=== PATIENT | male | born 1970 | race Two or more races ===

== ENCOUNTER 2020-12-02 12:29 | Inpatient (IN) | payer MEDICAID ==
[~2020-12-02] VITALS: Ht 188 cm; Wt 84.8 kg
--- NOTE | 2020-12-02 12:30 | NUR ---
Patient ranchora, from street, altered, noted fever. On room air, breathing evenly and unlabored. Connected to the monitor and pulse ox. kept comfortable, will continue to monitor accordingly.
[2020-12-02] MEDS ORDERED: IV NS 0.9% 1,000 ML BAG IV ONE (13:00)
[2020-12-02] MEDS ORDERED: VANCOMYCIN 1 GM in IV D5W 250 ML IV ONE (13:00)
[2020-12-02] MEDS ORDERED: CEFTRIAXONE 1GM BAG (ER ONLY) 50 ML IV ONE ×2 (13:00→13:09)
[2020-12-02] MEDS ORDERED: IBUPROFEN 600 MG TABLET PO ONE (13:00)
[2020-12-02] MEDS ORDERED: IBUPROFEN 600 MG TABLET ONE (13:09)
[2020-12-02 13:33] LABS: BASOPHILS % (AUTO) 0.1 % (0.0-2.0); HEMATOCRIT 23 % (39-51); HEMOGLOBIN 7.6 g/dL (13.5-17.5); LYMPHOCYTES # (AUTO) 0.9 /CMM (0.8-4.8); LYMPHOCYTES % (AUTO) 8.5 % (20.0-44.0); MEAN CORPUSCULAR HGB CONC 33 g/dl (31.0-36.0); MEAN CORPUSCULAR VOLUME 98 fL (80-96); MONOCYTES # (AUTO) 1.2 /CMM (0.1-1.30); MONOCYTES % (AUTO) 11.3 % (2.0-12.0); NEUTROPHILS # (AUTO) 8.5 /CMM (1.8-8.9); NEUTROPHILS % (AUTO) 80.1 % (43.0-81.0); PLATELET COUNT (AUTO) 168 /CMM (150-450); RED BLOOD CELL COUNT(AUTO) 2.34 MIL/uL (4.5-6.0); WHITE BLOOD COUNT (AUTO) 10.6 K/uL (4.3-11.0)
[2020-12-02 14:03] LABS: CALCIUM, SERUM 7.7 mg/dL (8.5-10.1); CARBON DIOXIDE 12 mmol/L (21-32); CHLORIDE 107 mmol/L (98-107); CREATININE 2.4 mg/dL (0.6-1.3); GLUCOSE 155 mg/dL (74-106); POTASSIUM 4.1 mmol/L (3.5-5.1); SODIUM SERUM 139 mmol/L (136-145); UREA NITROGEN, BLOOD 36 mg/dL (7-18)
[2020-12-02 14:06] LABS: BILIRUBIN,URINE NEGATIVE (NEGATIVE); COLOR,URINE YELLOW (YELLOW); LEUKOCYTE ESTERASE ,URINE NEGATIVE (NEGATIVE); NITRITE, URINE NEGATIVE (NEGATIVE); PROTEIN,URINE 30 mg/dl (NEGATIVE); UGLUCOSE NEGATIVE (NEGATIVE); UROBILINOGEN,URINE 0.2 EU/dL (0.2)
[2020-12-02 14:08] LABS: ALBUMIN 2.2 g/dL (3.4-5.0); ALKALINE PHOSPHATASE 201 U/L (46-116); ASPARTATE AMINOTRANSFERASE 30 U/L (15-37); BILIRUBIN,DIRECT 0.3 mg/dL (0.0-0.2); BILIRUBIN,TOTAL 0.5 mg/dL (0.2-1.0); TOTAL PROTEIN, SERUM 8.1 g/dL (6.4-8.2)
--- NOTE | 2020-12-02 14:12 | NUR ---
rapid covid negative
[2020-12-02 14:18] LABS: ALANINE AMINOTRANSFERASE 6 U/L (12-78)
[2020-12-02 14:19] LABS: BACTERIA,URINE Rare /HPF (None Seen); SQUAMOUS EPITHELIAL CELL,UR Few /HPF (None Seen); WBC,URINE 0-2 /HPF (0-3)
[2020-12-02] MEDS ORDERED: IBUP-1955 PO (15:36)
[2020-12-02] MEDS ORDERED: METF-440 PO (15:36)
[2020-12-02] MEDS ORDERED: ERGO500014 PO (15:36)
[2020-12-02] MEDS ORDERED: LISI20TA30 PO (15:36)
[2020-12-02] MEDS ORDERED: INSU100V7 SQ (15:36)
--- NOTE | 2020-12-02 15:39 | NUR ---
[facility] CALLED FARMWORKER DAIRY PAGED.
--- NOTE | 2020-12-02 15:40 | NUR ---
MOVE SHEET SUBMITTED.
--- NOTE | 2020-12-02 16:05 | NUR ---
GOT BED 106
--- NOTE | 2020-12-02 17:47 | NUR ---
patient transferred to room 110 via acls protocol, vitals in stable condition, patient a/ox4, breathing even and unlabored, no sob noted. endorsed to Marquis SHUKLA.
[2020-12-02 17:53] VITALS: BP 119/80
[2020-12-02] MEDS ORDERED: ACETAMINOPHEN 325 MG TABLET PO PRN (18:30)
[2020-12-02] MEDS ORDERED: Z GUARD REMEDY 2 OZ OINT TP PRN (18:30)
[2020-12-02] MEDS ORDERED: ZOLPIDEM TARTRATE 5 MG TABLET PO PRN (18:30)
[2020-12-02] MEDS ORDERED: MAG HYDROX/AL HYDROX/SIMETH 30 ML UDC PO PRN (18:30)
[2020-12-02] MEDS ORDERED: DEXTROSE 50%-WATER 50 ML DISP.SYRIN IV PRN (18:30)
[2020-12-02] MEDS ORDERED: MAGNESIUM HYDROXIDE 30 ML UDC PO PRN (18:30)
[2020-12-02] MEDS ORDERED: ONDANSETRON HCL/PF 4 MG/2 ML VIAL IVP PRN (18:30)
[2020-12-02] MEDS ORDERED: LORAZEPAM INJ 2 MG/ML VIAL IV PRN (18:30)
[2020-12-02] MEDS ORDERED: PIPERACILLIN /TAZOBACTAM 3.375 G in IV D5W 50 ML IV SCH (18:30)
--- NOTE | 2020-12-02 19:40 | NUR ---
RN OPENING NOTE, RECEIVED PATIENT IN BED, ASLEEP BUT AROUSES TO VERBAL STIMULI, A/O X4 , ABLE TO VERBALIZED NEEDS AND CONCERNS, AT ROOM AIR WITH OIMLAO2 SAT LEVEL, NO SOB/ACUTE RESP DISTRESS, SINUS TACHY IN TELE MONITOR, WITH HR 120S AT THIS TIME, RIGHT AC AND LEFT WRIST IV SITES PATENT AND INTACT, ALL PT SAFETY PRECAUTIONS IN PLACE, BED LOCKED AND LOW POSITION, WITH S/R X2 UP, CALL LIGHT W/I REACH, WILL CONTINUE TO MONITOR CLOSELY.
[2020-12-02 20:00] VITALS: BP 152/86
[2020-12-02] MEDS: HEPARIN SODIUM, PORCINE 5000 UNITS/1 ML VIAL SQ SCH (21:00)
[2020-12-02] MEDS: BLOOD SUGAR DIAGNOSTIC 1 EACH STRIP IN SCH (21:23)
[2020-12-02] MEDS: INSULIN REGULAR, HUMAN 100 UNIT/ML 3 ML VIAL SQ PRN (21:24)
[2020-12-02] MEDS ORDERED: MEROPENEM 500 MG in IV NS 0.9% 50 ML IV SCH (23:00)
[2020-12-02] MEDS ORDERED: MEROPENEM 500 MG VIAL IV ONE (23:51)
[2020-12-03] VITALS: BP 143/79
--- NOTE | 2020-12-03 00:10 | NUR ---
RN NOTES, INFORMED DR TORRES THAT PATIENT IS BEING WITH HR 120 SINCE BEGINNING OF THE SHIFT, THAT PATIENT ALSO HAD 101.6 TEMP TYLENOL GIVEN EARLIER BUT PATIENT AT THIS TIME AFEBRILE AND STILL CONTINUE WITH HR EVEN IN THE 130S, REPLIED WITH NEW ORDER TO START IV FLUIDS NS 100ML/HR, NOTED AND CARRIED OUT.
[2020-12-03] MEDS: IV NS 0.9% 1,000 ML IV SCH ×3 (00:51→20:59)
[2020-12-03 04:00] VITALS: BP 152/86
--- NOTE | 2020-12-03 06:33 | NUR ---
RN CLOSING NOTE, PATIENT IN BED, ASLEEP BUT AROUSES TO VERBAL STIMULI, A/O X4 , ABLE TO VERBALIZED NEEDS AND CONCERNS, CONTINUE AT ROOM AIR WITH O2 WNL, NO SOB/ACUTE RESP DISTRESS, SINUS TACHY LOW 110, RIGHT AC AND LEFT WRIST IV SITES PATENT AND INTACT, NS 0.9% INFUSING ORDERED, AND PATIENT TOLERATED WELL, ATIVAN IV ADMINISTERED X1 FOR ALCOHOL WITHDRAWAL/TREMORS, ALL PT SAFETY PRECAUTIONS IN PLACE, BED LOCKED AND LOW POSITION, WITH S/R X2 UP, CALL LIGHT W/I REACH, WILL ENDORSE CONTINUITY OF CARE TO ONCOMING NURSE.
[2020-12-03 06:35] LABS: BASOPHILS % (AUTO) 0.6 % (0.0-2.0); EOSINOPHILS % (AUTO) 0.4 % (0.0-6.0); LYMPHOCYTES # (AUTO) 0.7 /CMM (0.8-4.8); LYMPHOCYTES % (AUTO) 15.4 % (20.0-44.0); MEAN CORPUSCULAR HGB CONC 35 g/dl (31.0-36.0); MEAN CORPUSCULAR VOLUME 94 fL (80-96); MONOCYTES # (AUTO) 0.7 /CMM (0.1-1.30); NEUTROPHILS # (AUTO) 3.3 /CMM (1.8-8.9); NEUTROPHILS % (AUTO) 68.6 % (43.0-81.0); PLATELET COUNT (AUTO) 112 /CMM (150-450); RED BLOOD CELL COUNT(AUTO) 2.14 MIL/uL (4.5-6.0); WHITE BLOOD COUNT (AUTO) 4.8 K/uL (4.3-11.0)
[2020-12-03] MEDS: VANCOMYCIN 1 GM in IV D5W 250ml IV SCH (06:41)
[2020-12-03] MEDS: HYDROCODONE/APAP 5/325MG TABLET PO PRN ×2 (06:51→14:47)
[2020-12-03 06:54] LABS: CALCIUM, SERUM 7.7 mg/dL (8.5-10.1); MAGNESIUM 1.6 mg/dL (1.8-2.4); PHOSPHORUS 3.5 mg/dL (2.5-4.9); POTASSIUM 3.8 mmol/L (3.5-5.1)
[2020-12-03 06:56] LABS: IRON, SERUM 42 ug/dl (50-175); TOTAL IRON BINDING CAPACITY 164 ug/dl (250-450)
[2020-12-03 07:08] LABS: HEMATOCRIT 20 % (39-51)
[2020-12-03 07:13] LABS: FERRITIN 573 ng/mL (8-388)
--- NOTE | 2020-12-03 07:33 | NUR ---
RN OPENING NOTE PATIENT PRESENT IN BED, A/OX4, SLEEPY, ON ROOM AIR, SPO2 IS 99%, NO SOB OR DISTRESS NOTED, RESP UNLABORED, ON TELE MONITOR NST 110-112, URINAL AT BED SITE, IV LINE ON R AC ND L WRIST NOTED, FLUSHED AND INTACT, WOUND ON L FOOT NOTED, SAFETY MEASURES IN PLACE, BED IS LOCKED, CALL LIGHT IN REACH, WILL CONT TO MONITOR
[2020-12-03] MEDS: PANTOPRAZOLE 40 MG TABLET.DR PO SCH (07:50)
[2020-12-03] MEDS: BLOOD SUGAR DIAGNOSTIC 1 EACH STRIP IN SCH ×4 (07:50→22:06)
[2020-12-03] MEDS: INSULIN REGULAR, HUMAN 100 UNIT/ML 3 ML VIAL SQ PRN ×4 (07:51→22:02)
[2020-12-03] MEDS: THIAMINE HCL 100 MG TABLET PO SCH (08:13)
[2020-12-03] MEDS: MEROPENEM 500 MG in IV NS 0.9% 50 ML IV SCH ×3 (08:13→20:57)
[2020-12-03] MEDS: FOLIC ACID 1 MG TABLET PO SCH (08:16)
[2020-12-03] MEDS: HEPARIN SODIUM, PORCINE 5000 UNITS/1 ML VIAL SQ SCH ×2 (08:17→21:00)
--- NOTE | 2020-12-03 08:17 | NUR ---
Hbg and hematocrit went down, will hold Heparin and inform MD , also active bleeding from feet wound
--- NOTE | 2020-12-03 09:24 | NUR ---
RECEIVED PHONE CALL FROM LAB , BLOOD CULTURE POSITIVE FOR COCCI BACTERIA, WILL NOTIFY HOSPITALIST
--- NOTE | 2020-12-03 10:10 | NUR ---
WOUND CARE CONSULT: REVIEWED CHART, NURSING DOCUMENTATION AND PHOTO WHICH INDICATES LEFT LOWER LEG WOUND, PRESENT ON ADMISSION. PER NURSING STAFF, PT KEEPS TOUCHING HIS WOUND, EVEN WHEN DISCOURAGED BY NURSING STAFF. RECOMMEND DPM CONSULT. DR CARRION NOTIFIED. IN AGREEMENT WITH PLAN OF CARE.
[2020-12-03] MEDS: LISINOPRIL (20MG) 20 MG TABLET PO SCH (10:15)
--- NOTE | 2020-12-03 10:17 | NUR ---
WOUND CARE:RECEIVED CALL FROM DR CARRION, WHO IS FAMILIAR WITH PT AND HIS WOUND. WOUND CARE ORDER RECEIVED AND DISCUSSED WITH NURSING STAFF.
[2020-12-03] MEDS ORDERED: Magnesium 1GM/D5W 100ML PREMIX 100 ML IV SCH (10:30)
[2020-12-03 12:00] VITALS: BP 157/77
[2020-12-03 12:05] LABS: LYMPHOCYTES % (MANUAL) 14 % (16-48); MONOCYTES % (MANUAL) 10 % (0-11.0); NEUTROPHILS % (MANUAL) 76 (42-76)
--- NOTE | 2020-12-03 15:40 | NUR ---
SS Consult received for this pt. for homelessness & wants to discuss insurance coverage for potential surgery/ prosthetics etc per pt.'s nurse, Miya. JOVANA informed showcase maker,Miya regarding pt.'s questions. Per Miya she will speak to pt. SW will follow up to address homelessness at a later time.
--- NOTE | 2020-12-03 15:41 | NUR ---
RN NOTE PATIENT REQUESTED TO SPEAK WITH SW[employer]PER[employer] SUPERVISOR, P[GREG CALL MADE, DYAN IS AWARE, HOWEVER UNABLE TO COME AND SEE HIM TODAY, PROVIDED HER WITH PT'S CELL PHONE NUMBER, ([phone])
[2020-12-03 20:00] VITALS: BP 135/64
--- NOTE | 2020-12-03 20:00 | NUR ---
RN NOTE RECEIVED PT IN BED A/A/O X4, PT IS ON RA SATING ABOVE 95%, PT HAS UNLABORED BREATHING. SAFETY MEASURES IN PLACE.
[2020-12-03] MEDS: INSULIN GLARGINE, 100 UNIT/ML CARTRIDGE SQ SCH (21:59)
--- NOTE | 2020-12-03 22:04 | NUR ---
lantus not given, pt npo status at midnight, per dr Santhosh parker.
--- NOTE | 2020-12-03 22:07 | NUR ---
heparin not administered, pt has left foot wound slightly bleeding, dr Trevizo made aware, per dr Trevizo hold heparin.
[2020-12-04] VITALS (9 sets, daily range): BP systolic 135–161; BP diastolic 78–93
[2020-12-04] MEDS: VANCOMYCIN 1 GM in IV D5W 250ml IV SCH ×2 (01:12→20:20)
[2020-12-04] MEDS: MEROPENEM 500 MG in IV NS 0.9% 50 ML IV SCH (05:08)
[2020-12-04 06:25] LABS: BASOPHILS % (AUTO) 0.9 % (0.0-2.0); EOSINOPHILS % (AUTO) 1.5 % (0.0-6.0); LYMPHOCYTES % (AUTO) 22.3 % (20.0-44.0); MEAN CORPUSCULAR HGB CONC 35 g/dl (31.0-36.0); MEAN CORPUSCULAR VOLUME 94 fL (80-96); MONOCYTES # (AUTO) 0.7 /CMM (0.1-1.30); MONOCYTES % (AUTO) 15.6 % (2.0-12.0); NEUTROPHILS # (AUTO) 2.6 /CMM (1.8-8.9); NEUTROPHILS % (AUTO) 59.7 % (43.0-81.0); PLATELET COUNT (AUTO) 120 /CMM (150-450); RED BLOOD CELL COUNT(AUTO) 2.05 MIL/uL (4.5-6.0); WHITE BLOOD COUNT (AUTO) 4.3 K/uL (4.3-11.0)
[2020-12-04 06:34] LABS: CALCIUM, SERUM 7.9 mg/dL (8.5-10.1); CREATININE 2.2 mg/dL (0.6-1.3); MAGNESIUM 1.6 mg/dL (1.8-2.4); PHOSPHORUS 3.4 mg/dL (2.5-4.9); POTASSIUM 3.5 mmol/L (3.5-5.1)
[2020-12-04] MEDS: IV NS 0.9% 1,000 ML IV SCH (06:39)
[2020-12-04 06:45] LABS: HEMOGLOBIN 6.8 g/dL (13.5-17.5)
[2020-12-04 06:46] LABS: HEMATOCRIT 19 % (39-51)
--- NOTE | 2020-12-04 07:19 | NUR ---
RN NOTE REPORT GIVEN TO ONCOMING SHIFT FOR MARY.
[2020-12-04] MEDS: BLOOD SUGAR DIAGNOSTIC 1 EACH STRIP IN SCH ×4 (07:30→21:26)
--- NOTE | 2020-12-04 07:30 | NUR ---
RN OPENING NOTES RECEIVED PT IN BED. AWAKE, A/O X4. ON ROOM AIR SATURATING @99%. NO SOB OR ANY RESPIRATORY DISTRESS NOTED. USES URINAL AT BEDSIDE., IV ACCESS ON R AC #18 AND L WRIST #18 BOTH INTACT AND PATENT. WOUND ON L FOOT NOTED. SAFETY MEASURES IN PLACE. CALL LIGHT WITHIN REACH. BED LOCKED AND AT LOWEST POSITION WITH SIDE RAILS UP X2. WILL CONTINUE TO MONITOR.
[2020-12-04 08:19] LABS: EOSINOPHILS % (MANUAL) 2 % (0-4); LYMPHOCYTES % (MANUAL) 24 % (16-48); MONOCYTES % (MANUAL) 12 % (0-11.0); NEUTROPHILS % (MANUAL) 61 (42-76); REACTIVE LYMPHOCYTES 1 % (0-0)
[2020-12-04] MEDS: THIAMINE HCL 100 MG TABLET PO SCH (08:27)
[2020-12-04] MEDS: LISINOPRIL (20MG) 20 MG TABLET PO SCH (08:27)
[2020-12-04] MEDS: PANTOPRAZOLE 40 MG TABLET.DR PO SCH (08:27)
[2020-12-04] MEDS: FOLIC ACID 1 MG TABLET PO SCH (08:27)
[2020-12-04] MEDS ORDERED: ACETAMINOPHEN 325 MG TABLET PO ONE ×2 (08:30→12:30)
[2020-12-04] MEDS ORDERED: diphenhydrAMINE HCL 50 MG/ML VIAL IV ONE ×2 (08:30→12:30)
[2020-12-04] MEDS: INSULIN REGULAR, HUMAN 100 UNIT/ML 3 ML VIAL SQ PRN ×4 (08:49→21:40)
--- NOTE | 2020-12-04 08:50 | NUR ---
RN NOTES BS OF 115, NO INSULIN COVERAGE.
[2020-12-04] MEDS: HEPARIN SODIUM, PORCINE 5000 UNITS/1 ML VIAL SQ SCH ×2 (09:00→21:00)
[2020-12-04] MEDS ORDERED: EPOETIN ALFA (10,000 UNIT) 10,000 UNIT/ML VIAL SQ SCH (11:30)
[2020-12-04] MEDS ORDERED: Magnesium 1GM/D5W 100ML PREMIX 100 ML IV SCH (12:00)
[2020-12-04] MEDS ORDERED: LACTULOSE 10 G/15 ML UDC (PYXIS) PO PRN (12:30)
[2020-12-04] MEDS ORDERED: MEROPENEM 1 G in IV NS 0.9% 100 ML IV SCH (13:00)
--- NOTE | 2020-12-04 13:20 | NUR ---
RN NOTES MD ORDERED BLOOD TRANSFUSION OF 1 PRBC FOR HGB OF 6.8. CONSENT SIGNED. VS WNL. TRANSFUSION STARTED.
--- NOTE | 2020-12-04 14:26 | NUR ---
"SS Consult: SS consult requested for homelessness. The pt. is a 50-year old Male seeking medical care for his swollen leg per pt. JOVANA met with pt. bedside. The pt. is alert & oriented x 4 and made appropriate eye contact. Pt.'s mood, speech & thought process are WNL. Per pt. he has been experiencing homelessness for about 5 months and usually resides near [facility]. Pt. is not ambulatory at the moment and may have to amputate the left leg in the upcoming days. Pt. denies any drug or ETOH use. However, per pt. he used to be a heavy drinker in the past. Per pt. his support system also includes friend, Hong Urias [phone]. Pt. denies any Hx. of psychiatric diagnosis and denies SI/HI. Pt. denies hallucinations. [employer] will collaborate with IDT to ensure a safe & appropriate discharge plan. Pt. signed the homeless waiver & it was placed in the pt.s chart. SW provided the following homeless resources to pt. and pt. was receptive: Substance Abuse resources provided included: [facility] Substance Abuse Self-Helpline ([facility]) ; [facility] [address] [facility]. [place] [id number] ; [place] [phone] [facility] [address] [facility] [address] [facility] [address] ; [facility] [address] [facility] [address] ; [facility] [address] [facility] [address] ; [facility] [address] [facility] [address] ; [facility] Substance Abuse Helpline([facility])-[facility] ; [facility] ; [facility]; [facility]; [facility] [place]; [facility]; [facility] [place]; [facility]; [facility]; [facility], [facility]. [facility]; Alcoholics Anonymous -[facility]; [facility]Lql[facility] ; Marijuana Anonymous [facility]; Narcotics Anonymous www.na.org; Year-round shelters: [facility] [address] [place], [place] [phone] ; [facility] [place] [address] [place] [address]; [facility] [address] [facility] [address] Winter Shelters: [facility] Provider: [facility] [place] [address]: [address] [facility] [address] [place], [address] # of Beds: 47 Population Served: [facility] 6 | [facility] Whitney Murillo [place] Provider: [facility] Address: [address], [address] # of Beds: 66 Population Served: [facility] [place] Provider: [facility] Address: [address] [facility], [address] # of Beds: 56 Population Served: [facility] [place] Provider: [facility] Address: [address] [facility], [address] # of Beds: 49 Population Served: [facility] 8 | [facility] Provider: [facility] Address: [address] [facility], [address] # of Beds: 37 Population"
--- NOTE | 2020-12-04 16:20 | NUR ---
RN NOTES TRANSFUSION DONE. NO TRANSFUSION REACTION REPORTED. VS WNL.
[2020-12-04] MEDS: IV NS 0.9% 1,000 ML IV PRN (17:13)
--- NOTE | 2020-12-04 17:48 | NUR ---
RN NOTES BS OF 116, NO INSULIN COVERAGE
[2020-12-04 18:25] LABS: *SPE A/G RATIO 0.5 (0.7-1.7); *SPE ALBUMIN 2.3 g/dL (2.9-4.4); *SPE ALPHA-1-GLOBULIN 0.3 g/dL (0.0-0.4); *SPE ALPHA-2-GLOBULIN 0.5 g/dL (0.4-1.0); *SPE BETA GLOBULIN 0.9 g/dL (0.7-1.3); *SPE GLOBULIN, TOTAL 4.5 g/dL (2.2-3.9); *SPE M-SPIKE Not Observed g/dL (Not Observed); *SPEGAMMA GLOBULIN 2.8 g/dL (0.4-1.8); IMMUNOGLOBULIN A, SERUM 488 mg/dL (90-386); IMMUNOGLOBULIN G, SERUM 2876 mg/dL (603-1613); IMMUNOGLOBULIN M, SERUM 103 mg/dL (20-172)
--- NOTE | 2020-12-04 18:42 | NUR ---
RN CLOSING NOTES S/P 1 UNIT PRBC. NO SIGNIFICANT CHANGES THROUGHOUT SHIFT. VS STABLE. NOT IN DISTRESS. NO PAIN REPORTED AT THIS TIME. SAFETY MEASURES IN PLACE. CALL LIGHT WITHIN REACH. BED LOCKED AND AT LOWEST POSITION WITH SIDE RAILS UP X3. WILL ENDORSE TO NIGHT NURSE FOR MARY.
--- NOTE | 2020-12-04 19:15 | NUR ---
ASSUMED CARE OF PATIENT. AWAKE AND A/O X4. CURRENTLY ON ROOM AIR AND DOES NOT APPEAR TO BE IN ANY DISTRESS AT THIS TIME. IV ACCESS IN L. WRIST SALINE LOCKED AND PATENT. IV ACCESS IN R. AC PATENT AND INFUSING NS @ 100 ML/HR. SWOLLEN LEFT LEG AND FOOT. WOUND NOTED ON LEFT MEDIAL ANKLE. SAFETY MEASURES IN PLACE. BED IN LOW POSITION AND LOCKED WITH SIDE RAILS UP X2. CALL LIGHT WITHIN REACH. WILL CONTINUE TO MONITOR.
[2020-12-04] MEDS ORDERED: CEFTRIAXONE 1 G in IV D5W 50 ML IV SCH (21:00)
[2020-12-04] MEDS: INSULIN GLARGINE, 100 UNIT/ML CARTRIDGE SQ SCH (21:40)
[2020-12-04] MEDS: HYDROCODONE/APAP 5/325MG TABLET PO PRN (21:42)
[2020-12-05] MEDS: IV NS 0.9% 1,000 ML IV PRN (03:11)
[2020-12-05 04:00] VITALS: BP 158/90
--- NOTE | 2020-12-05 04:57 | NUR ---
patient transferred via bed to room 315 with all belongings. report was given to GAYLA Saeed.
--- NOTE | 2020-12-05 05:00 | NUR ---
PT RECEIVED AOX3, BLE WEAKNESS AND ON BED REST. RESPIRATIONS EVEN AND UNLABORED. NO S/SOF DYSPNEA OR SOB. ABDOMEN SOFT NON TENDER.. LBM ON 12/05/2020 AND DENIES CONSTIPATION. #19 TO LEFT ANKLE PATENT, FLUSHES WELL AND NS @100 ML/HR STARTED. LEFT FOOT HAS OLD SCARS AND +4 EDEMA. LEFT ANKLE HAS OPEN WOUND SOLANGE.LEFT ANKLE CLEANED WITH SALINE. COVERED WITH GAUZE AND KERLIX APPLIED LLE ELEVATED. NO C/O OF PAIN OR DISCOMFORT. CALL LIGHT WITHIN REACH AND ENCOURAGE TO CALL FOR ASSIST.
[2020-12-05 06:47] LABS: BASOPHILS % (AUTO) 1.1 % (0.0-2.0); EOSINOPHILS % (AUTO) 2.3 % (0.0-6.0); HEMATOCRIT 22 % (39-51); HEMOGLOBIN 7.7 g/dL (13.5-17.5); LYMPHOCYTES # (AUTO) 0.9 /CMM (0.8-4.8); LYMPHOCYTES % (AUTO) 24.5 % (20.0-44.0); MEAN CORPUSCULAR HGB CONC 35 g/dl (31.0-36.0); MEAN CORPUSCULAR VOLUME 93 fL (80-96); MONOCYTES # (AUTO) 0.5 /CMM (0.1-1.30); MONOCYTES % (AUTO) 13.1 % (2.0-12.0); NEUTROPHILS # (AUTO) 2.3 /CMM (1.8-8.9); PLATELET COUNT (AUTO) 135 /CMM (150-450); RED BLOOD CELL COUNT(AUTO) 2.34 MIL/uL (4.5-6.0); WHITE BLOOD COUNT (AUTO) 3.9 K/uL (4.3-11.0)
--- NOTE | 2020-12-05 07:00 | NUR ---
RN OPENING NOTES RECEIVED PT AWAKE IN BED AT THIS TIME. AOX4, PT ABLE TO MAKE NEEDS KNOWN, PT STABLE ON RA. NO SOB NOTED, NO SIGN OF ANY ACUTE DISTRESS NOTED, NO C/O PAIN AT THIS TIME. IV ACCESS NOTED IN RAC G#18 AND LEFT WRIST G# 18, BOTH INTACT, PATENT AND FLUSHING WELL. PT NOTED WITH LEFT ANKLE WOUND, WOUND CULTURE COLLECTED AND SEND TO LAB, WOUND CARE PROVIDED. ASPIRATIONS AND SAFETY PRECAUTIONS IN PLACE AND MAINTAINED AT ALL TIMES. BED IN LOWEST LOCKED POSITION, SIDE RAILS UP, HOB ELEVATED, TABLE AND CALL LIGHT WITHIN REACH. WILL CONTINUE TO MONITOR
[2020-12-05 07:15] LABS: BILIRUBIN,TOTAL 0.6 mg/dL (0.2-1.0); CREATININE 2.1 mg/dL (0.6-1.3); MAGNESIUM 1.6 mg/dL (1.8-2.4); PHOSPHORUS 4.4 mg/dL (2.5-4.9); POTASSIUM 3.6 mmol/L (3.5-5.1); TOTAL PROTEIN, SERUM 7.5 g/dL (6.4-8.2)
[2020-12-05] MEDS: BLOOD SUGAR DIAGNOSTIC 1 EACH STRIP IN SCH ×2 (07:53→11:44)
[2020-12-05] MEDS: INSULIN REGULAR, HUMAN 100 UNIT/ML 3 ML VIAL SQ PRN ×2 (07:54→11:44)
[2020-12-05 08:00] VITALS: BP 168/69
[2020-12-05 08:07] LABS: *ANA ANTI-CENTROMERE B AB <0.2 AI (0.0-0.9); *ANA ANTI-DNA(DS) AB, QN <1 IU/mL (0-9); *ANA ANTI-JO-1 <0.2 AI (0.0-0.9); *ANA ANTICHROMATIN ANTIBODY <0.2 AI (0.0-0.9); *ANA RNP ANTIBODIES 0.2 AI (0.0-0.9); *ANA SJOGREN'S ANTI-SS-A <0.2 AI (0.0-0.9); *ANA SJOGREN'S ANTI-SS-B 4.2 AI (0.0-0.9); *ANAANTI-SCLERODERMA-70 AB <0.2 AI (0.0-0.9); *ANASMITH AB <0.2 AI (0.0-0.9)
[2020-12-05] MEDS: VANCOMYCIN 1 GM in IV D5W 250ml IV SCH (08:16)
[2020-12-05] MEDS: PANTOPRAZOLE 40 MG TABLET.DR PO SCH (08:16)
[2020-12-05] MEDS: FOLIC ACID 1 MG TABLET PO SCH (08:16)
[2020-12-05] MEDS: THIAMINE HCL 100 MG TABLET PO SCH (08:17)
[2020-12-05 08:20] VITALS: BP 168/69
[2020-12-05] MEDS: LISINOPRIL (20MG) 20 MG TABLET PO SCH (08:20)
[2020-12-05] MEDS: HEPARIN SODIUM, PORCINE 5000 UNITS/1 ML VIAL SQ SCH (08:25)
--- NOTE | 2020-12-05 08:25 | NUR ---
MS RN NOTE HEPARIN SODIUM 5000 UNIT SQ SCHEDULED AT 09:00 HELD DUE TO LOW HGB/HCT (HGB: 7.7, HCT 22) AND HIGH PT (PT 12.0). WILL CONTINUE TO MONITOR.
--- NOTE | 2020-12-05 09:10 | NUR ---
MS RN NOTE PT'S AMMONIA LEVEL IS 56. CEPHULAC 20 MG PO Q6H PRN ADMINISTERED TO PT PER MD ORDER. WILL CONTINUE TO MONITOR.
[2020-12-05] MEDS ORDERED: Magnesium 1GM/D5W 100ML PREMIX 100 ML IV SCH ×2 (11:00)
--- NOTE | 2020-12-05 12:40 | NUR ---
MS RN NOTE PT REQUESTED TO SEE HOSPITALIST. JASS ROY CAME ONTO THE UNIT, DISCUSSED PTS PLAN OF CARE WITH PT. WILL CONTINUE TO MONITOR.
--- NOTE | 2020-12-05 14:50 | NUR ---
MS OVENS SUPERVISOR NOTE PT REQUESTED TO LEAVE AMA, STATING "I WANT TO GO TO [facility] FOR MY CARE". BENEFITS AND RISKS OF LEAVING AMA PROVIDED. PT VERBALIZED UNDERSTANDING AND SIGNED AMA FORM AND HOMELESS WAIVER FORM. HOMELESS RESOURCES PROVIDED TO PT. ALL CARE, NEEDS, MEDICATION AND WOUND CARE TREATMENT ADMINISTERED ANTICIPATED PER ORDER. BELONGINGS ACCOUNTED FOR, SIGNED BY PT, WITH PT AND BELONGING LIST FILED IN CHART. ID BAND REMOVED. IV ACCESS DISCONTINUED, SECURED WITH GAUZE AND TAPE. NO S/O BLEEDING NOTED. NO INFILTRATION. PT REFUSED PICTURE TAKEN OF WOUND. PT ACCOMPANIED BY NURSE IN STABLE CONDITION OUT OF UNIT AT THIS TIME. EMILY CHARGE NURSE AND JASS DAVID NP AWARE.
[2020-12-06] MEDS ORDERED: ERGOCALCIFEROL (VITAMIN D 2) 50,000 UNIT CAPSULE PO SCH (09:00)
== END 2020-12-05 14:58 | disposition left against medical advice (07) | DRG 720 ==
LOC: EDBD 12:29 → ER 12:36 → EDBD 12:36 → TELE1 17:20 → MEDSG1 12-03 08:26 → MED 12-05 04:59
PROVIDERS: ADMIT Nurse Practitioner Family; ATTEND Nurse Practitioner Family
PROC: 30233N1 Transfusion of Nonautologous Red Blood Cells into Peripheral Vein, Percutaneous Approach (ICD-10-PCS; principal; 2020-12-04)
DX: A41.9 Sepsis, unspecified organism (principal); E87.2 Acidosis; R65.20 Severe sepsis without septic shock; E11.69 Type 2 diabetes mellitus with other specified complication; D61.818 Other pancytopenia; N17.0 Acute kidney failure with tubular necrosis; N18.9 Chronic kidney disease, unspecified; I12.9 Hypertensive chronic kidney disease with stage 1 through stage 4 chronic kidney disease, or unspecified chronic kidney disease; E11.22 Type 2 diabetes mellitus with diabetic chronic kidney disease; M86.672 Other chronic osteomyelitis, left ankle and foot; G89.29 Other chronic pain; E66.9 Obesity, unspecified; D64.9 Anemia, unspecified; L02.419 Cutaneous abscess of limb, unspecified; L03.116 Cellulitis of left lower limb; Z68.24 Body mass index [BMI] 24.0-24.9, adult; N39.0 Urinary tract infection, site not specified; F10.129 Alcohol abuse with intoxication, unspecified; Y90.6 Blood alcohol level of 120-199 mg/100 ml; N13.9 Obstructive and reflux uropathy, unspecified; Z59.0 Homelessness; Z20.822 Contact with and (suspected) exposure to COVID-19; Z79.4 Long term (current) use of insulin; K74.60 Unspecified cirrhosis of liver; E88.09 Other disorders of plasma-protein metabolism, not elsewhere classified; B96.20 Unspecified Escherichia coli [E. coli] as the cause of diseases classified elsewhere; D69.59 Other secondary thrombocytopenia; R16.1 Splenomegaly, not elsewhere classified; M00.9 Pyogenic arthritis, unspecified; Z83.3 Family history of diabetes mellitus
CPT/HCPCS: 36415; 71045-TC; 73600-TC; 73721-TC; 76705-TC; 76770-TC; 80048-TC; 80053-TC; 80061-TC; 80076-TC; 80202-TC; 81001; 82140-TC; 82550-TC; 82728-TC; 82784; 82962-TC; 83540-TC; 83605-TC; 83735-TC; 83970; 84100-TC; 84155; 84165; 84443-TC; 84484-TC; 85025-TC; 85652-TC; 85730-TC; 86225; 86235; 86334; 86431-TC; 86706; 86803; 86850-TC; 87040-TC; 87070-TC; 87081-TC; 87086-TC; 87186-TC; 87340; 93971-TC; A6403; C9803; G0378; G0480; J0696; J0885; J1200; J1644; J1815; J2060; J2185; J2405; J2543; J3370; J3475; J7030; J7040; J7060; P9016-BL; U0003